=== PATIENT | male | born 1985 ===

== ENCOUNTER 2019-09-03 22:12 | Inpatient (IN) | payer SELFPAY ==
[2019-09-03 22:06] VITALS: BP 160/123; PULSE 154; RESP 18; TEMP 37.3; O2SAT 93
[2019-09-03 22:12] VITALS: O2SAT 98
--- NOTE | 2019-09-03 22:15 | W.ED.PSYCH ---
HPI - Psych General: Chief Complaint: Psychiatric Symptoms Stated Complaint: mhe Time Seen by Provider: 09/03/19 22:12 Source: police Mode of arrival: other Limitations: altered mental status History of Present Illness: HPI Narrative: 33-year-old male brought in by police after using meth. Patient's mother called police patient is quite agitated and altered. Mother and stated he had done a large amount of meth. Patient currently speaking in a [place] accent and is quite agitated. Patient is in police custody and is handcuffed as he was combative. Will give patient ketamine to protect himself and others. Review of Systems General: Reports: ROS unobtainable due to mental status PFSH ED PFSH: Social History Smoking and tobacco status: current every day smoker Physical Exam Const: EXAM LIMITATIONS: altered mental status GENERAL APPEARANCE: combative and disheveled HENMT: COMMON NORMALS: normocephalic and atraumatic HEAD & SCALP: normocephalic and atraumatic Eye: COMMON NORMALS: Equal, round and reactive pupils present and EOMs intact bilaterally PUPIL: Yes Equal, round and reactive pupils present Neck/C-Spine: COMMON NORMALS: full ROM and supple Chest: COMMONS NORMALS: normal inspection of the chest and normal palpation of entire chest wall Resp: COMMON NORMALS: normal respiratory effort, No retractions, No use of accessory muscles and clear to auscultation bilaterally AUSCULTATION: clear to auscultation bilaterally Cardio: COMMON NORMALS: regular rhythm and No murmurs present (Cardio) RATE: tachycardic RHYTHM: regular rhythm GI: COMMON NORMALS: Normal to inspection, nondistended, normoactive bowel sounds present, Soft to palpation, non-tender and no masses PALPATION: Yes Soft to palpation Extremity: COMMON NORMALS: normal to inspection and full ROM Neuro: COMMON NORMALS: moves all extremities Psych: APPEARANCE: Yes disheveled and Yes bizarre ATTITUDE: Yes paranoid and Yes uncooperative ACTIVITY/MOTOR BEHAVIOR: Yes disorganized behavior Skin: COMMON NORMALS: no rashes or lesions noted and no wounds GENERAL SKIN EXAM: no rashes or lesions noted MDM - Psych MDM Narrative: Medical decision making narrative: Patient presents with methamphetamine overdose. He was quite combative and had to give multiple meds to sedate him for his protection. Patient is now sedated and is still protecting his own airway and will respond to stimuli. patient placed under a 96-hour hold due to to his acute psychosis from meth abuse. Dr. Mark consulted. I spoke to hospitalist will admit to the ICU. Lab Data: Labs: Lab Results 09/03/19 09/03/19 09/03/19 Range/Units 22:17 22:17 22:17 WBC 12.6 H (4.0-10.0) 10^3/ uL RBC 4.65 (4.1-5.3) 10^6/u L Hgb 13.9 (11.7-16.6) g/dL Hct 41.2 L (42.0-52.0) % MCV 88.6 (80-94) fL MCH 29.9 (28.0-34.0) pg MCHC 33.7 (30.0-36.0) g/dL RDW 12.1 (12.1-15.1) % Plt Count 376 (130-400) 10^3/c mm MPV 9.1 (7.4-10.4) fL Neut % (Auto) 54.8 % Lymph % (Auto) 32.2 % [place] % (Auto) 11.3 % Eos % (Auto) 1.2 % Baso % (Auto) 0.3 % Neut # (Auto) 6.9 (1.8-7.7) 10^3/u L Lymph # (Auto) 4.1 (0.8-4.8) 10^3/u L [place] # (Auto) 1.4 H (0.2-0.9) 10^3/u L Eos # (Auto) 0.2 (0.0-0.8) 10^3/u L Baso # (Auto) 0.0 (0.0-0.1) 10^3/u L Nucleated RBC % (a uto) 0 % Nucleated RBCs # 0.0 /100WBC Sodium 138 (136-145) mmol/L Potassium 3.3 L (3.5-5.1) mmol/L Chloride 98 (98-107) mmol/L Carbon Dioxide 23 (22-29) mmol/L Anion Gap 20.3 H (5-19) BUN 20 (6-20) mg/dL Creatinine 1.2 (0.7-1.2) mg/dL GFR Calculation 70.6 L (90-130) mL/min Glucose 234 H (65-115) mg/dL Calculated Osmolal ity 290 (285-295) mOsm/k g Calcium 9.0 (8.5-10.5) mg/dL Total Bilirubin 0.9 (0.15-1.2) mg/dL AST 24 (0-40) U/L ALT 18 (0-41) U/L Alkaline Phosphata se 98 (40-130) IU/L Total Protein 7.0 (6.6-8.7) g/dL Albumin 4.8 (3.5-5.2) g/dL Globulin 2.2 (1.3-4.6) g/dL TSH 1.59 (0.27-4.20) uIU/ mL Salicylates < 0.3 L (3-10) mg/dL Acetaminophen < 5.0 L (10-30) ug/mL Ethyl Alcohol < 10 (0-10) mg/dL Critical Care Time Critical Care Time: Critical Care Time: Yes Total Critical Care Time: 36 Attestation: This case had a high probability of a clinically significant, sudden, or life threatening deterioration of this patient's condition which required my full and direct attention, intervention and personal management. Discharge Plan Discharge Admit Provider: Izzy Alvarenga Discharge Date/Time: 09/04/19 01:39 Coding Level of Care Code ED Logistics Account Manager for [facility] Fwd Exam Comprehensive
[2019-09-03] MEDS: LORazepam 2 mg/mL INJ 1 mL IM (22:32)
[2019-09-03 22:47] LABS: Basophils % 0.3 %; Eosinophils # 0.2 10^3/uL (0.0-0.8); Eosinophils % 1.2 %; Hematocrit 41.2 % (42.0-52.0); Hemoglobin 13.9 g/dL (11.7-16.6); Lymphocytes # 4.1 10^3/uL (0.8-4.8); Lymphocytes % 32.2 %; Mean Corpuscular HGB Conc 33.7 g/dL (30.0-36.0); Mean Corpuscular Hemoglobin 29.9 pg (28.0-34.0); Mean Corpuscular Volume 88.6 fL (80-94); Mean Platelet Volume 9.1 fL (7.4-10.4); Monocytes # 1.4 10^3/uL (0.2-0.9); Monocytes % 11.3 %; Neutrophils # 6.9 10^3/uL (1.8-7.7); Neutrophils % 54.8 %; Nucleated Red Blood Cells % 0 %; Platelet Count 376 10^3/cmm (130-400); Red Blood Count 4.65 10^6/uL (4.1-5.3); Red Cell Distribution Width 12.1 % (12.1-15.1); White Blood Count 12.6 10^3/uL (4.0-10.0)
[2019-09-03] MEDS: LORazepam 2 mg/mL INJ 1 mL 4 MG IM ×2 (23:08→23:40)
[2019-09-03] MEDS: haloperidol inj 5 mg/mL INJ 1 mL IM (23:50)
[2019-09-04] VITALS (50 sets, daily range): BP systolic 91–126; BP diastolic 48–73; PULSE 84–117; RESP 15–24; TEMP 36.4–36.9; O2SAT 71–100
[2019-09-04 00:16] LABS: Thyroid Stimulating Hormone 1.59 uIU/mL (0.27-4.20)
[2019-09-04 00:18] LABS: Acetaminophen < 5.0 ug/mL (10-30); Alcohol Level < 10 mg/dL (0-10); Salicylate < 0.3 mg/dL (3-10)
[2019-09-04 00:39] LABS: Alanine Aminotransferase 18 U/L (0-41); Albumin Level 4.8 g/dL (3.5-5.2); Alkaline Phosphatase 98 IU/L (40-130); Anion Gap 20.3 (5-19); Aspartate Amino Transferase 24 U/L (0-40); Blood Urea Nitrogen 20 mg/dL (6-20); Carbon Dioxide 23 mmol/L (22-29); Chloride 98 mmol/L (98-107); Globulin 2.2 g/dL (1.3-4.6); Glomerular Filtration Rate 70.6 mL/min (90-130); Glucose 234 mg/dL (65-115); Osmolality Calculated 290 mOsm/kg (285-295); Potassium 3.3 mmol/L (3.5-5.1); Sodium 138 mmol/L (136-145); Total Bilirubin 0.9 mg/dL (0.15-1.2)
[2019-09-04] MEDS: sodium chloride 0.9% 1,000 ML 999 ML IV (00:54)
--- NOTE | 2019-09-04 01:03 | ECG_ITS ---
Measurements Intervals [place] Rate: 106 P: 64 [place]: 157 QRS: -19 QRSD: 108 T: 52 QT: 340 QTc: 453 SINUS TACHYCARDIA MODERATE VOLTAGE CRITERIA FOR LVH, CONSIDER NORMAL VARIANT [MEETS CRITERIA IN ONE OF: R(aVL), S(V1), R(V5), R(V5/V6)+S(V1)] ABNORMAL RHYTHM ECG No previous ECG available for comparison Electronically Signed On 09-05-2019 11:07:26 CDT by Jung Cornelius MD [email or web address]
--- NOTE | 2019-09-04 03:52 | PM.HP ---
Providers/Chief Complaint Admitting Physician: Izzy Alvarenga MD Chief Complaint: mhe History of Present Illness Kalyan Guerrero is a 33 year old male who is brought in by the police today after being called by his mother reporting meth abuse. he had apparenetly taken a large dose of iv meth today and thereafter was acting bizzare, pacing in the home, speaking with an accent, etc. When police reached his home, they found him to be agitates and aggressive. he was handcuffed and brought to the ED. He has since been sedated with Ativan and Ketamine. At time of my exam, he is asleep, protecting his airway, mildly tachycardic at 106bpm, improved from HR of 150-160. He is saturating 95% on RA. Review of Systems General: Reports: ROS unobtainable due to medical condition and ROS unobtainable due to mental status Medications/Allergies Allergies Allergy/AdvReac Type Severity Reaction Status Date / Time meperidine [From Demerol] Allergy ALGY-Rash Verified 07/12/19 10:58 Penicillins Allergy ALGY-Rash Verified 07/12/19 10:58 strawberry Allergy Unknown Verified 07/12/19 10:58 Sulfa (Sulfonamide Allergy ALGY-Anaphy Verified 07/12/19 10:58 Antibiotics) laxis Tetanus Vaccines and Toxoid Allergy Unknown Verified 07/12/19 10:58 PFSH Acute PFSH: Social History (Updated 09/04/19 @ 04:01 by Izzy Alvarenga MD) Smoking and tobacco status: current every day smoker Substance/Drug Use: current Vitals/I&O/Wt Last Vital Signs Temp 97.5 F L 09/04/19 02:40 Pulse 106 H 09/04/19 02:15 Resp 18 09/04/19 02:15 BP 92/48 09/04/19 02:15 Pulse Ox 89 L 09/04/19 02:15 Weight last 48 hrs Weight 2.58 kg Physical Exam Narrative: EXAM NARRATIVE: GEN: AAsleep, somnolent, not awakened for physical exam as he was previosuly very agitated and aggressive HEENT: NC/AT, PERRLA Chest: normal inspection of the chest and entire chest wall CVS: S1S2 N RS: CTA B/L anteriorly Abd: Soft, nt/nd , bs+ OCCUPATIONAL HEALTH TECHNICIAN: sedated, noted to be moving extremities in bed Data : 09/03/19 22:17 09/03/19 22:17 A&P Assessment and plan (1) Methamphetamine abuse: Status: Acute (2) Delirium due to methamphetamine intoxication: Status: Acute (3) Sinus tachycardia: Status: Acute Additional A&P Information Admit to ICU -Patient showing signs of methamphetamine intoxication with tachycardia, severe agitation, and psychosis. - Currently he is calm after having received ativan and ketamine in the ED - will continue ativan and prn haldol as needed for agitation - If tachycardia worsens, will plan to use ca channel blockers. Currently it is improving. - He is currently maintaining airway, continue to use aspiration and seizure precautions, Npo for now - check serum lactate and CPK level - Serum tox negative for salicylates and aciteaminophen. Check urine drug screen - Currently on a 96 hr hold, psychaitry assessment in morning Full code Attestations Medical Necessity Statement*: greater than 2 midnight admission for amphetamine intoxication, 96 hr hold Coding Level of Care Code Acute Mixer Lever Operator for Catrachito Curtis Diagnoses Methamphetamine abuse F15.10 Delirium due to methamphetamine intoxication F15.921 Sinus tachycardia R00.0
[2019-09-04] MEDS: sodium chlor 0.9% + KCl 20 mEq 20 MEQ/1,000 ML BAG 100 MEQ IV ×2 (06:22→21:09)
--- NOTE | 2019-09-04 08:15 | PC.NURSE ---
Pt resting in bed, vitals are stable, respirations are even and unlabored. Pt was not awoken at this time to do Neurological assessment do to his aggression.
--- NOTE | 2019-09-04 11:24 | PM.PN ---
Subjective Subjective: Interval history: Admitted overnight. Labs noted. Patient continues to be drowsy and lethargic today morning as well. Moving all 4 limbs spontaneously and is getting aroused to verbal stimulus. Vitals noted. Vitals/I&O/Wt Last Vital Signs Temp 97.5 F L 09/04/19 02:40 Pulse 107 H 09/04/19 11:00 Resp 22 H 09/04/19 11:00 BP 126/73 09/04/19 11:00 Pulse Ox 71 L 09/04/19 11:00 09/03/19 09/04/19 09/04/19 22:59 06:59 14:59 Intake Total 0 / 0 Balance 0 / 0 Weight last 48 hrs Weight 79.288 kg Weight 2.58 kg Physical Exam Narrative: EXAM NARRATIVE: General: Drowsy, lethargic, arousable to vocal stimulus HEENT: PERRLA, pupils bilaterally equal and reactive Chest: Normal vesicular breath sounds, no added sounds, equal good air entry bilaterally CVS: S1-S2 regular, no murmurs, no tachycardia, no gallops, no rubs Abdomen: Soft, nontender, no organomegaly, bowel sounds present Neuro: Drowsy, lethargic, moving all 4 limbs spontaneously, protecting airway, pupils bilaterally equal and reactive. No nystagmus. Data : 09/04/19 11:49 09/04/19 11:49 A&P Assessment and plan (1) Altered mental status: Status: Acute (2) Delirium due to methamphetamine intoxication: Status: Acute (3) Methamphetamine abuse: Status: Acute (4) Sinus tachycardia: Status: Acute Additional A&P Information Delirium due to methamphetamines intoxication: Was given 2 doses of ketamine, Ativan, Haldol in the ER last night. Drowsy most likely because of the overmedication in the ER. Protecting airway at present. GCS acceptable. Bladder scan as patient has not had much urine output. U tox awaited. No signs of tachycardia, not protecting airway, hypotension/hypertension at present. We will continue to monitor. Banana bag, followed by bolus of 500 normal saline followed by normal saline 100 cc/h. Keep n.p.o. Fall, aspiration, seizure precautions. 96-hour hold. Once patient is more awake will have psych evaluation. Full code N.p.o. for now. We will start him on diet once more awake. Low probability for DVT. Attestations Medical Necessity Statement*: Altered mental status, amphetamine abuse, 96-hour hold Coding Level of Care Code Acute Director Critical Care for [facility] Fwd Diagnoses Altered mental status R41.82 Delirium due to methamphetamine intoxication F15.921 Methamphetamine abuse F15.10 Sinus tachycardia R00.0
[2019-09-04 11:43] LABS: Amphetamines Screen Urine Positive (Negative); Barbiturates Screen Urine Negative (Negative); Benzodiazepines Screen Urine Positive (Negative); Cocaine Screen Urine Negative (Negative); Opiate Screen Urine Negative (Negative); PCP Screen Urine Negative (Negative); THC Screen Urine Negative (Negative)
[2019-09-04] MEDS: sodium chloride 0.9% 500 ML 999 ML IV (11:53)
[2019-09-04] MEDS: potassium chloride premix 40 MEQ/100 ML PREMIX 25 MEQ IV (11:54)
[2019-09-04 12:10] LABS: Basophils % 0.4 %; Eosinophils # 0.2 10^3/uL (0.0-0.8); Eosinophils % 1.7 %; Hematocrit 40.1 % (42.0-52.0); Hemoglobin 13.3 g/dL (11.7-16.6); Lymphocytes # 2.5 10^3/uL (0.8-4.8); Lymphocytes % 23.7 %; Mean Corpuscular HGB Conc 33.2 g/dL (30.0-36.0); Mean Corpuscular Hemoglobin 29.8 pg (28.0-34.0); Mean Corpuscular Volume 89.7 fL (80-94); Mean Platelet Volume 9.4 fL (7.4-10.4); Monocytes # 1.1 10^3/uL (0.2-0.9); Monocytes % 10.1 %; Neutrophils # 6.7 10^3/uL (1.8-7.7); Neutrophils % 63.7 %; Nucleated Red Blood Cells % 0 %; Platelet Count 348 10^3/cmm (130-400); Red Blood Count 4.47 10^6/uL (4.1-5.3); Red Cell Distribution Width 12.6 % (12.1-15.1); White Blood Count 10.6 10^3/uL (4.0-10.0)
[2019-09-04 12:22] LABS: Alanine Aminotransferase 16 U/L (0-41); Albumin Level 3.9 g/dL (3.5-5.2); Alkaline Phosphatase 88 IU/L (40-130); Chloride 108 mmol/L (98-107); Sodium 141 mmol/L (136-145)
[2019-09-04] MEDS: folic acid 1 MG, multivitamin inj 10 ML, thiamine 100 MG in sodium chloride 0.9% 1,000 ML 252.8 MG IV (12:29)
[2019-09-04 12:40] LABS: Aspartate Amino Transferase 25 U/L (0-40); Blood Urea Nitrogen 13 mg/dL (6-20); Calcium 8.6 mg/dL (8.5-10.5); Carbon Dioxide 24 mmol/L (22-29); Globulin 2.2 g/dL (1.3-4.6); Glomerular Filtration Rate 98.4 mL/min (90-130); Glucose 89 mg/dL (65-115); Osmolality Calculated 288 mOsm/kg (285-295); Total Bilirubin 0.7 mg/dL (0.15-1.2); Total Protein 6.1 g/dL (6.6-8.7)
--- NOTE | 2019-09-04 19:24 | PC.NURSE ---
Assessment Continues to be drowsy, arouses and awakens to verbal command. Pt is oriented to person and place. Intermittently talks in accent and confused speech. PERRL, dialted with brisk response. Breathing even and non-labored on room air. Lungs clear throughout. Continues to be NPO with ice chips and sips per physician order. 1:1 sitter at bedside.
[2019-09-05] VITALS (41 sets, daily range): BP systolic 95–125; BP diastolic 49–87; PULSE 77–123; RESP 9–27; TEMP 36.5–36.9; O2SAT 89–100
[2019-09-05 05:25] LABS: Basophils # 0.1 10^3/uL (0.0-0.1); Basophils % 0.6 %; Nucleated Red Blood Cells % 0 %; Platelet Count 337 10^3/cmm (130-400)
[2019-09-05 05:42] LABS: Eosinophils # 0.3 10^3/uL (0.0-0.8); Eosinophils % 3.3 %; Hematocrit 39.7 % (42.0-52.0); Lymphocytes # 2.5 10^3/uL (0.8-4.8); Lymphocytes % 31.2 %; Mean Corpuscular HGB Conc 32.7 g/dL (30.0-36.0); Mean Corpuscular Hemoglobin 30.3 pg (28.0-34.0); Mean Corpuscular Volume 92.5 fL (80-94); Mean Platelet Volume 9.7 fL (7.4-10.4); Monocytes # 0.7 10^3/uL (0.2-0.9); Monocytes % 8.8 %; Neutrophils # 4.4 10^3/uL (1.8-7.7); Red Blood Count 4.29 10^6/uL (4.1-5.3); Red Cell Distribution Width 12.8 % (12.1-15.1); White Blood Count 7.9 10^3/uL (4.0-10.0)
[2019-09-05 06:33] LABS: Alanine Aminotransferase 16 U/L (0-41); Albumin Level 3.6 g/dL (3.5-5.2); Alkaline Phosphatase 84 IU/L (40-130); Anion Gap 17.3 (5-19); Aspartate Amino Transferase 27 U/L (0-40); Blood Urea Nitrogen 7 mg/dL (6-20); Calcium 8.3 mg/dL (8.5-10.5); Carbon Dioxide 20 mmol/L (22-29); Chloride 107 mmol/L (98-107); Glomerular Filtration Rate 112.8 mL/min (90-130); Glucose 59 mg/dL (65-115); Osmolality Calculated 284 mOsm/kg (285-295); Potassium 4.3 mmol/L (3.5-5.1); Sodium 140 mmol/L (136-145); Total Bilirubin 0.6 mg/dL (0.15-1.2); Total Protein 5.6 g/dL (6.6-8.7)
--- NOTE | 2019-09-05 09:52 | PM.PN ---
Subjective Subjective: Interval history: No acute events overnight. Patient is a lot more awake this morning. Still confused. As per the nurse no nausea, vomiting, agitation. Vitals/I&O/Wt Last Vital Signs Temp 97.7 F 09/05/19 00:00 Pulse 102 H 09/05/19 09:00 Resp 16 09/05/19 09:00 BP 97/53 09/05/19 09:00 Pulse Ox 96 09/05/19 09:00 09/04/19 09/05/19 09/05/19 22:59 06:59 14:59 Intake Total 1050 / 1050 450 / 1500 550 / 550 Output Total 950 / 1150 250 / 1400 300 / 300 Balance 100 / -100 200 / 100 250 / 250 Weight last 48 hrs Weight 79.288 kg Weight 2.58 kg Physical Exam Narrative: EXAM NARRATIVE: General: No acute distress, drowsy but arousable, Confused HEENT: PERRLA, pupils bilaterally equal and reactive Chest: Normal vesicular breath sounds, no added sounds, equal good air entry bilaterally CVS: S1-S2 regular, no murmurs, no tachycardia, no gallops, no rubs Abdomen: Soft, nontender, no organomegaly, bowel sounds present Neuro: Drowsy, lethargic, moving all 4 limbs spontaneously, protecting airway, pupils bilaterally equal and reactive. No nystagmus. Data : 09/05/19 04:36 09/05/19 04:36 A&P Assessment and plan (1) Altered mental status: Status: Acute (2) Delirium due to methamphetamine intoxication: Status: Acute (3) Methamphetamine abuse: Status: Acute (4) Sinus tachycardia: Status: Acute Additional A&P Information Delirium due to methamphetamines intoxication: Was given 2 doses of ketamine, Ativan, Haldol in the ER. U tox positive for benzos and amphetamines. More awake. Start on regular diet. No signs of tachycardia, not protecting airway, hypotension/hypertension at present. We will continue to monitor. Continue with normal saline 100 cc/h. Fall, aspiration, seizure precautions. 96-hour hold. Hypoglycemia: Most likely because of poor oral intake. Check stat blood sugar. Adult hypoglycemia protocol. Check blood sugar before meals and at bedtime. Check HbA1c Full code Regular diet Low probability for DVT. We will consult Dr. Mark as patient is more awake now. Patient is adequately stable enough to be transferred to Neuropsych Unit if required. Attestations Medical Necessity Statement*: Amphetamine intoxication, altered mental status Time Spent in Patient Care: 16 - 35 minutes Coding Level of Care Code Acute Slate Roofer Helper for Catrachito Curtis Diagnoses Altered mental status R41.82 Delirium due to methamphetamine intoxication F15.921 Methamphetamine abuse F15.10 Sinus tachycardia R00.0
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
[2019-09-05 14:15] LABS: Glucose Point of Care 102 mg/dL (70-110)
[2019-09-05 14:36] LABS: Estmated Average Glucose 131; Hemoglobin A1C 6.2 % (4.0-6.0)
--- NOTE | 2019-09-05 14:38 | PC.NURSE ---
Called and left a message with Dr. Mark to make sure he was aware that he had a consult on pt.
[2019-09-05] MEDS: sodium chlor 0.9% + KCl 20 mEq 20 MEQ/1,000 ML BAG 100 MEQ IV ×2 (14:39→23:51)
[2019-09-05 16:52] LABS: Glucose Point of Care 105 mg/dL (70-110)
[2019-09-05] MEDS: metoprolol tartrate 25 mg Tablet 12.5 MG PO (18:15)
[2019-09-05 21:25] LABS: Glucose Point of Care 120 mg/dL (70-110)
[2019-09-05] MEDS: nicotine 21 mg Patch 1 PATCH TRANSDERMA (22:22)
[2019-09-06] VITALS (11 sets, daily range): BP systolic 99–136; BP diastolic 58–93; PULSE 78–100; RESP 16–20; TEMP 36.6–37; O2SAT 92–98
[2019-09-06 05:27] LABS: Basophils # 0.1 10^3/uL (0.0-0.1); Basophils % 0.6 %; Eosinophils # 0.2 10^3/uL (0.0-0.8); Eosinophils % 2.9 %; Hematocrit 39.3 % (42.0-52.0); Hemoglobin 12.9 g/dL (11.7-16.6); Lymphocytes # 2.6 10^3/uL (0.8-4.8); Lymphocytes % 32.2 %; Mean Corpuscular HGB Conc 32.8 g/dL (30.0-36.0); Mean Corpuscular Hemoglobin 29.5 pg (28.0-34.0); Mean Corpuscular Volume 89.7 fL (80-94); Mean Platelet Volume 9.5 fL (7.4-10.4); Monocytes # 0.7 10^3/uL (0.2-0.9); Monocytes % 8.8 %; Neutrophils # 4.4 10^3/uL (1.8-7.7); Neutrophils % 55.3 %; Nucleated Red Blood Cells % 0 %; Platelet Count 331 10^3/cmm (130-400); Red Blood Count 4.38 10^6/uL (4.1-5.3); Red Cell Distribution Width 12.5 % (12.1-15.1)
[2019-09-06 05:40] LABS: Alanine Aminotransferase 14 U/L (0-41); Albumin Level 3.7 g/dL (3.5-5.2); Alkaline Phosphatase 83 IU/L (40-130); Aspartate Amino Transferase 25 U/L (0-40); Blood Urea Nitrogen 7 mg/dL (6-20); Calcium 8.3 mg/dL (8.5-10.5); Carbon Dioxide 23 mmol/L (22-29); Chloride 108 mmol/L (98-107); Globulin 2.1 g/dL (1.3-4.6); Glomerular Filtration Rate 112.8 mL/min (90-130); Glucose 109 mg/dL (65-115); Osmolality Calculated 286 mOsm/kg (285-295); Sodium 140 mmol/L (136-145); Total Bilirubin 0.2 mg/dL (0.15-1.2); Total Protein 5.8 g/dL (6.6-8.7)
[2019-09-06] MEDS: metoprolol tartrate 25 mg Tablet 12.5 MG PO (08:12)
[2019-09-06] MEDS: nicotine 21 mg Patch 1 PATCH TRANSDERMA (08:12)
[2019-09-06] MEDS: sodium chlor 0.9% + KCl 20 mEq 20 MEQ/1,000 ML BAG 100 MEQ IV (09:51)
[2019-09-06 12:43] LABS: Glucose Point of Care 103 mg/dL (70-110)
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
--- NOTE | 2019-09-06 18:58 | P.PN_ITS ---
Vitals/I&O/Wt Last Vital Signs Temp 97.8 F 09/06/19 14:00 Pulse 100 09/06/19 14:00 Resp 20 H 09/06/19 14:00 BP 134/88 09/06/19 14:00 Pulse Ox 98 09/06/19 14:00 09/06/19 09/06/19 09/06/19 06:59 14:59 22:59 Intake Total 1400 / 4890 1600 / 1600 Output Total 1130 / 4730 1150 / 1150 Balance 270 / 160 450 / 450 Weight last 48 hrs Weight 79.469 kg Weight 79.469 kg Physical Exam Const: COMMON NORMALS: no acute distress and patient oriented x3 HENMT: COMMON NORMALS: normocephalic HEAD & SCALP: normocephalic Neck/C-Spine: COMMON NORMALS: no JVD Resp: COMMON NORMALS: normal respiratory effort, No retractions, No use of accessory muscles and clear to auscultation bilaterally AUSCULTATION: clear to auscultation bilaterally Cardio: COMMON NORMALS: no JVD, regular rate, regular rhythm, S1 normal heart sound present and S2 normal heart sound present RATE: regular rate RHYTHM: regular rhythm HEART SOUNDS: S1 normal heart sound present and S2 normal heart sound present GI: COMMON NORMALS: Normal to inspection, nondistended, normoactive bowel sounds present, Soft to palpation, non-tender, No hepatosplenomegaly present, no masses and no bruits PALPATION: Yes Soft to palpation and Yes No hepatosplenomegaly present Extremity: COMMON NORMALS: capillary refill normal, no clubbing, cyanosis or edema, no calf tenderness and no pedal edema Neuro: COMMON NORMALS: patient oriented x3 Psych: COMMON NORMALS: mental status grossly normal Data : 09/06/19 05:00 09/06/19 05:00 A&P Assessment and plan (1) Altered mental status: Status: Acute (2) Delirium due to methamphetamine intoxication: Status: Acute (3) Methamphetamine abuse: Status: Acute (4) Sinus tachycardia: Status: Acute Additional A&P Information Delirium due to methamphetamines intoxication: U tox positive for benzos and amphetamines. Alert oriented x3, answering questions appropriately. Start on regular diet. No signs of tachycardia, not protecting airway, hypotension/hypertension at present. We will continue to monitor. Continue with normal saline 100 cc/h. Fall, aspiration, seizure precautions. 96-hour hold. Hypoglycemia: Resolved Check HbA1c 6.2, prediabetic Full code Regular diet Low probability for DVT. Stable to transfer to MPU Attestations Medical Necessity Statement*: [place] patient was transferred to the n.p.u. methamphetamine abuse Coding Level of Care Code Acute Finance Business Manager for Catrachito Hernandezd Diagnoses Altered mental status R41.82 Delirium due to methamphetamine intoxication F15.921 Methamphetamine abuse F15.10 Sinus tachycardia R00.0
[2019-09-06] MEDS: trazodone 50 mg Tablet PO (21:28)
--- NOTE | 2019-09-06 21:50 | PC.NURSE ---
TRAZODONE PT REQUESTING SLEEP AID. ADMINISTERED TRAZODONE 50 MG PO FOR SLEEP. WILL MONITOR FOR MEDICATION EFFECTIVENESS.
[2019-09-07 05:28] LABS: Basophils # 0.1 10^3/uL (0.0-0.1); Basophils % 0.6 %; Eosinophils # 0.2 10^3/uL (0.0-0.8); Hematocrit 42.2 % (42.0-52.0); Hemoglobin 13.8 g/dL (11.7-16.6); Lymphocytes # 3.4 10^3/uL (0.8-4.8); Lymphocytes % 43.1 %; Mean Corpuscular HGB Conc 32.7 g/dL (30.0-36.0); Mean Corpuscular Hemoglobin 29.5 pg (28.0-34.0); Mean Corpuscular Volume 90.2 fL (80-94); Mean Platelet Volume 10.2 fL (7.4-10.4); Monocytes # 0.7 10^3/uL (0.2-0.9); Monocytes % 8.6 %; Neutrophils # 3.5 10^3/uL (1.8-7.7); Neutrophils % 44.4 %; Nucleated Red Blood Cells % 0 %; Platelet Count 315 10^3/cmm (130-400); Red Blood Count 4.68 10^6/uL (4.1-5.3); Red Cell Distribution Width 12.5 % (12.1-15.1); White Blood Count 7.9 10^3/uL (4.0-10.0)
[2019-09-07 05:58] LABS: Alanine Aminotransferase 15 U/L (0-41); Alkaline Phosphatase 86 IU/L (40-130); Anion Gap 15.8 (5-19); Aspartate Amino Transferase 18 U/L (0-40); Blood Urea Nitrogen 8 mg/dL (6-20); Calcium 9.3 mg/dL (8.5-10.5); Carbon Dioxide 25 mmol/L (22-29); Chloride 104 mmol/L (98-107); Globulin 2.4 g/dL (1.3-4.6); Glomerular Filtration Rate 112.8 mL/min (90-130); Glucose 95 mg/dL (65-115); Osmolality Calculated 288 mOsm/kg (285-295); Potassium 3.8 mmol/L (3.5-5.1); Sodium 141 mmol/L (136-145); Total Bilirubin 0.3 mg/dL (0.15-1.2); Total Protein 6.4 g/dL (6.6-8.7)
[2019-09-07 06:00] VITALS: BP 114/72; PULSE 96; RESP 17; TEMP 37; O2SAT 95
[2019-09-07] MEDS: nicotine 21 mg Patch 1 PATCH TRANSDERMA (09:25)
[2019-09-07 10:00] VITALS: BMI 22.3
[2019-09-07 14:00] VITALS: BP 105/65; PULSE 82; RESP 20; TEMP 37; O2SAT 97
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
[2019-09-07] MEDS: nicotine 2 mg Gum BUCCAL (21:20)
[2019-09-07] MEDS: trazodone 50 mg Tablet PO (21:20)
[2019-09-07 22:00] VITALS: BP 138/92; PULSE 87; RESP 18; TEMP 36.6; O2SAT 97
[2019-09-08 06:00] VITALS: BP 111/65; PULSE 78; RESP 17; TEMP 36.5; O2SAT 94
[2019-09-08] MEDS: nicotine 21 mg Patch 1 PATCH TRANSDERMA (08:31)
[2019-09-08] MEDS: metoprolol tartrate 25 mg Tablet 12.5 MG PO (08:32)
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
[2019-09-08 13:49] VITALS: BP 111/65; PULSE 78; RESP 17; TEMP 36.5; O2SAT 94
[2019-09-08 13:51] VITALS: BP 119/77; PULSE 96; RESP 18; TEMP 36.8; O2SAT 97
== END 2019-09-08 14:09 | disposition home or self-care (01) | DRG 897 ==
LOC: ER 09-04 00:35 → ICU 09-04 01:13 → NP 09-06 13:13
PROVIDERS: Emergency Medicine; Family Medicine; Student in an Organized Health Care Education/Training Program; Admitting Provider Student in an Organized Health Care Education/Training Program; Visit Provider Psychiatry & Neurology Psychiatry
DX: F15.221 Other stimulant dependence with intoxication delirium (principal); F17.210 Nicotine dependence, cigarettes, uncomplicated; R00.0 Tachycardia, unspecified; E16.2 Hypoglycemia, unspecified; F31.9 Bipolar disorder, unspecified; F41.9 Anxiety disorder, unspecified; F60.89 Other specific personality disorders; Z62.820 Parent-biological child conflict; M79.7 Fibromyalgia; G89.29 Other chronic pain
CPT/HCPCS: 12345; 36415; 36416; 80053; 80306; 80307; 82962; 83036; 84443; 85025; 93005; 93010; 96372; 96375; 99284; J1630; J2060; J3411; J3480; J3490; J7030; J7040